=== PATIENT | male | born 1975 | race Caucasian/White ===

== ENCOUNTER 2016-10-27 17:03 | Emergency (ER) | payer OTHER ==
[~2016-10-27] VITALS: Ht 185.4 cm; Wt 92.1 kg
[2016-10-27 17:28] VITALS: TEMP 36.9; Ht 185.4 cm; Wt 92.1 kg
[2016-10-27 18:28] VITALS: O2SAT 99
[2016-10-27 18:51] LABS: POINT OF CARE TROPONIN I < 0.030 ng/ml (0-0.045)
[2016-10-27 18:55] LABS: BASO % 0.6 %; BASO ABS # 0.05 K/uL (0-0.2); COMPLETE YES; EOS % 1.8 %; HEMATOCRIT 43.7 % (42-52); IG% 0.2 %; LYMPH % 30.3 %; LYMPH ABS # 2.71 K/uL (1.2-3.4); MEAN CORPUSCULAR HEMOGLOBIN 31.7 pg (25-34); MEAN CORPUSCULAR HGB CONC 34.8 g/dl (32-36); MEAN PLATELET VOLUME 10.7 fL (7.4-10.4); MONO % 7.5 %; NEUT % 59.6 %; PLATELET COUNT 201 K/uL (130-400); WHITE BLOOD COUNT 8.94 K/uL (4.8-10.8)
[2016-10-27 19:02] LABS: PARTIAL THROMBOPLASTIN RATIO 1.1; PROTHROMBIN TIME (PATIENT) 10.8 SECONDS (9.0-12.0)
[2016-10-27 19:17] LABS: ALT/SGPT 68 U/L (12-78); AST/SGOT 37 U/L (15-37); BLOOD UREA NITROGEN 8 mg/dl (7-18); BUN/CREATININE RATIO 10.4 (10-20); CALCIUM 8.9 mg/dl (8.5-10.1); CARBON DIOXIDE 29 mmol/L (21-32); CHLORIDE 105 mmol/L (98-107); CREATININE 0.79 mg/dl (0.60-1.40); GLUCOSE 79 mg/dl (70-99); POTASSIUM 3.7 mmol/L (3.5-5.1); SODIUM 138 mmol/L (136-145)
[2016-10-27 19:22] LABS: ALKALINE PHOSPHATASE 75 U/L (45-117)
--- NOTE | 2016-10-27 19:23 | DIAGNOSTIC IMAGING REPORT ---
CHEST 2 VIEWS ROUTINE HISTORY: 41 years-old Male pleuritic chest pain COMPARISON: Acute abdominal series radiographs 08/13/2015 TECHNIQUE: Frontal and lateral views of the chest FINDINGS: Cardiomediastinal and hilar silhouettes are within normal limits. There is no pneumothorax, pleural effusion or focal airspace consolidation. No overt pulmonary edema. The bones of the chest are grossly intact. Minimal multilevel endplate spurring is seen. IMPRESSION: No acute cardiopulmonary process. The above report was generated using voice recognition software. It may contain grammatical, syntax or spelling errors. Electronically signed by: Charlie Boyce M.D. 10/27/2016 7:22 PM Dictated Date/Time: 10/27/2016 7:21 PM
--- NOTE | 2016-10-27 19:25 | DIAGNOSTIC IMAGING REPORT ---
L-SPINE MIN 4 VIEWS ROUTINE HISTORY: 41 years-old Male low back pain, left leg pain, no trauma COMPARISON: Sacrum and coccyx radiographs 02/15/2016 TECHNIQUE: 5 views of the lumbar spine FINDINGS: There are 5 lumbar type vertebral segments present. Mild intervertebral disc space narrowing is noted at L5-S1. No significant degenerative changes are otherwise seen. No compression deformity or malalignment. No pars defects identified. Soft tissues are unremarkable. IMPRESSION: 1. No acute bony abnormality. 2. Mild intervertebral disc space narrowing at L5-S1. The above report was generated using voice recognition software. It may contain grammatical, syntax or spelling errors. Electronically signed by: Charlie Boyce M.D. 10/27/2016 7:24 PM Dictated Date/Time: 10/27/2016 7:22 PM
[2016-10-27] MEDS ORDERED: IBUPROFEN 600 MG TAB PO STA (19:33)
[2016-10-27] MEDS ORDERED: ALBUTEROL HFA 8 GM INHALER INH ONE (19:45)
[2016-10-27 20:12] VITALS: BP 129/85; PULSE 85; O2SAT 98
--- NOTE | 2016-10-27 20:21 | EMERGENCY ROOM VISIT NOTE ---
History Report prepared by Chad: Wood Clark Under the Supervision of: Dr. Rafy Wilkerson M.D. First contact with patient: 18:21 Chief Complaint: CARDIAC ASSESSMENT Stated Complaint: CHEST PAIN,SENT BY DR Charles Triage Summary: Patient ambulatory to triage with a steady and upright gait, states "I woke up this morning with a lot of pain in my chest when I cough or take a deep breath. I have a lot of lower back pain with left leg numbness which has been going on for about 4 days. I saw my PCP today around 1545. They just told me to come here for some testing." Patient denies any recent illnesses. History of Present Illness The patient is a 41 year old male who presents to the Emergency Room with complaints of constant substernal chest pain that started around 0330. He rates his pain as an 8/10 in severity. The patient states that he woke up this morning around 0330 coughing when he noticed he was experiencing chest pains. He states that it feels as if "someone is punching me in my chest whenever I cough or take a deep breath". He states that he is also experiencing shortness of breath whenever he is walking. The patient reports that he went to his PCP at [facility] today where he had an EKG done, but he denies having an MRI done because they could not run an MRI after 1800. HE states that his PCP advised him to come to the ED due to a concern for a PE. The patient also reports that he went to his PCP for his chronic lower back pain. He states that he has had lower back pain and a numbness in his left leg intermittently for the last three years. The patient states that these chronic symptoms come and go sporadically. He denies a history of blood clots, heart problems, lung problems, aneurysms, a cold within the last couple of months, recent travel, and a family history of heart problems. The patient denies a headache, fevers, chills, diaphoresis, visual changes, neck pain, nausea, vomiting, abdominal pain , back pain, melena, hematochezia, urinary symptoms, numbness, weakness, lymphadenopathy, rash, incontinence, being around someone ill, or other complaints. Source of History: patient Onset: 0330 this morning Position: chest Symptom Intensity: 8/10 Quality: other ("punching feeling") Timing: constant Modifying Factors (Worsening): other (cough, deep breath) Associated Symptoms: + SOB Review of Systems See HPI for pertinent positives and negatives. A total of ten systems were reviewed and were otherwise negative. Past Medical & Surgical Medical Problems: (1) Osteomyelitis Family History FH: cancer Hypertension Social History Smoking Status: Current Every Day Smoker Alcohol Use: occasionally Drug Use: none Marital Status: Housing Status: lives with significant other Occupation Status: unemployed Current/Historical Medications No Active Prescriptions or Reported Meds Allergies Coded Allergies: Tramadol (Unverified Allergy, Unknown, ., 10/27/16) Physical Exam Vital Signs Date Time Temp Pulse Resp B/P (MAP) Pulse Ox O2 Delivery O2 Flow Rate FiO2 10/27/16 20:12 85 16 129/85 98 10/27/16 18:28 88 20 135/86 99 Room Air 10/27/16 18:28 99 Room Air 10/27/16 18:28 91 10/27/16 17:28 100 Room Air 10/27/16 17:28 36.9 100 18 136/87 99 Room Air Physical Exam GENERAL: Awake, alert, well-appearing, in no distress HENT: Normocephalic, atraumatic. Oropharynx unremarkable. EYES: Normal conjunctiva. Sclera non-icteric. NECK: Supple. No nuchal rigidity. FROM. No JVD. RESPIRATORY: Clear to auscultation. CARDIAC: Regular rate, normal rhythm. Extremities warm and well perfused. Pulses equal. ABDOMEN: Soft, non-distended. No tenderness to palpation. No rebound or guarding. No masses. RECTAL: Deferred. MUSCULOSKELETAL: Chest examination reveals no tenderness. The back is symmetrical on inspection without obvious abnormality. There is no CVA tenderness to palpation. No joint edema. LOWER EXTREMITIES: Calves are equal size bilaterally and non-tender. No edema. No discoloration. NEURO: Normal sensorium. No sensory or motor deficits noted. SKIN: No rash or jaundice noted. Medical Decision & Procedures ER Provider Diagnostic Interpretation: X-ray: Per my interpretation, radiologist review. L-SPINE MIN 4 VIEWS ROUTINE HISTORY: 41 years-old Male low back pain, left leg pain, no trauma COMPARISON: Sacrum and coccyx radiographs 02/15/2016 TECHNIQUE: 5 views of the lumbar spine FINDINGS: There are 5 lumbar type vertebral segments present. Mild intervertebral disc space narrowing is noted at L5-S1. No significant degenerative changes are otherwise seen. No compression deformity or malalignment. No pars defects identified. Soft tissues are unremarkable. IMPRESSION: 1. No acute bony abnormality. 2. Mild intervertebral disc space narrowing at L5-S1. The above report was generated using voice recognition software. It may contain grammatical, syntax or spelling errors. Electronically signed by: Charlie Boyce M.D. 10/27/2016 7:24 PM Dictated Date/Time: 10/27/2016 7:22 PM CHEST 2 VIEWS ROUTINE HISTORY: 41 years-old Male pleuritic chest pain COMPARISON: Acute abdominal series radiographs 08/13/2015 TECHNIQUE: Frontal and lateral views of the chest FINDINGS: Cardiomediastinal and hilar silhouettes are within normal limits. There is no pneumothorax, pleural effusion or focal airspace consolidation. No overt pulmonary edema. The bones of the chest are grossly intact. Minimal multilevel endplate spurring is seen. IMPRESSION: No acute cardiopulmonary process. The above report was generated using voice recognition software. It may contain grammatical, syntax or spelling errors. Electronically signed by: Charlie Boyce M.D. 10/27/2016 7:22 PM Dictated Date/Time: 10/27/2016 7:21 PM Laboratory Results 10/27/16 18:28 Red Blood Count 4.80, Mean Corpuscular Volume 91.0, Mean Corpuscular Hemoglobin 31.7, Mean Corpuscular Hemoglobin Concent 34.8, Mean Platelet Volume 10.7, Neutrophils (%) (Auto) 59.6, Lymphocytes (%) (Auto) 30.3, Monocytes (%) (Auto) 7.5, Eosinophils (%) (Auto) 1.8, Basophils (%) (Auto) 0.6, Neutrophils # (Auto) 5.33, Lymphocytes # (Auto) 2.71, Monocytes # (Auto) 0.67, Eosinophils # (Auto) 0.16, Basophils # (Auto) 0.05 10/27/16 18:28 Test 10/27/16 18:28 10/27/16 18:32 White Blood Count 8.94 K/uL (4.8-10.8) Red Blood Count 4.80 M/uL (4.7-6.1) Hemoglobin 15.2 g/dL (14.0-18.0) Hematocrit 43.7 % (42-52) Mean Corpuscular Volume 91.0 fL (80-100) Mean Corpuscular Hemoglobin 31.7 pg (25-34) Mean Corpuscular Hemoglobin Concent 34.8 g/dl (32-36) Platelet Count 201 K/uL (130-400) Mean Platelet Volume 10.7 fL (7.4-10.4) Neutrophils (%) (Auto) 59.6 % Lymphocytes (%) (Auto) 30.3 % Monocytes (%) (Auto) 7.5 % Eosinophils (%) (Auto) 1.8 % Basophils (%) (Auto) 0.6 % Neutrophils # (Auto) 5.33 K/uL (1.4-6.5) Lymphocytes # (Auto) 2.71 K/uL (1.2-3.4) Monocytes # (Auto) 0.67 K/uL (0.11-0.59) Eosinophils # (Auto) 0.16 K/uL (0-0.5) Basophils # (Auto) 0.05 K/uL (0-0.2) RDW Standard Deviation 43.8 fL (36.4-46.3) RDW Coefficient of Variation 13.2 % (11.5-14.5) Immature Granulocyte % (Auto) 0.2 % Immature Granulocyte # (Auto) 0.02 K/uL (0.00-0.02) Prothrombin Time 10.8 SECONDS (9.0-12.0) Prothromb Time International Ratio 1.0 (0.9-1.1) Activated Partial Thromboplast Time 27.4 SECONDS (21.0-31.0) Partial Thromboplastin Ratio 1.1 Anion Gap 4.0 mmol/L (3-11) Est Creatinine Clear Calc Drug Dose 141.8 ml/min Estimated GFR () 131.1 Estimated GFR (Non- 113.1 BUN/Creatinine Ratio 10.4 (10-20) Calcium Level 8.9 mg/dl (8.5-10.1) Total Bilirubin 0.4 mg/dl (0.2-1) Direct Bilirubin < 0.1 mg/dl (0-0.2) Aspartate Amino Transf (AST/SGOT) 37 U/L (15-37) Alanine Aminotransferase (ALT/SGPT) 68 U/L (12-78) Alkaline Phosphatase 75 U/L (45-117) Total Creatine Kinase 73 U/L (39-308) Creatine Kinase MB < 0.5 ng/ml (0.5-3.6) Creatine Kinase MB Ratio (0-3.0) Total Protein 8.1 gm/dl (6.4-8.2) Albumin 3.9 gm/dl (3.4-5.0) Lipase 479 U/L (73-393) Bedside D-Dimer 412 ng/mlFEU (0-450) Bedside Troponin I < 0.030 ng/ml (0-0.045) Laboratory results reviewed by me Medications Administered Medications (Trade) Dose Ordered Sig/Mirela Route Start Time Stop Time Status Last Admin Dose Admin Ibuprofen (Motrin Tab) 600 mg NOW STAT PO 10/27/16 19:33 10/27/16 19:34 DC 10/27/16 19:50 600 MG Albuterol (Ventolin Hfa Inhaler) 2 puffs NOW ONCE INH 10/27/16 19:45 10/27/16 19:46 DC 10/27/16 19:49 2 PUFFS ECG Indication: chest pain Rate (beats per minute): 97 Rhythm: normal sinus Findings: no acute ischemic change, no ectopy, other (no pericarditis) ED Course 1822: The patient was evaluated in room C11B. A complete history and physical exam was performed. 1932: Ordered Ibuprofen 600 mg PO. 1934: I reevaluated the patient. Discussed results and discharge instructions: He verbalized understanding and agreement. The patient is ready for discharge. 1944: Ordered Albuterol 2 puffs INH. Medical Decision Triage Nursing notes reviewed. The patient's presentation and history were concerning for chest pain. The patient also notes having low back pain that radiates to his left leg. Etiologies such as cardiac ischemia, aortic dissection, pulmonary embolism, pneumonia, pneumothorax, musculoskeletal, infections, gastrointestinal, degenerative disc disease, lumbago, sciatica, cauda equina, epidural abscess, osteomyelitis, fracture, aortic disease, metastatic disease, as well as others were entertained. Patient was evaluated. Physical examination did not reveal any significant issues in the lower extremities. He has had low back pain for over 3 years. He has never had imaging done before. He notes pleuritic type chest pain. He has had this all day today. He has constant pain. Blood work was obtained. He had an unremarkable CBC and chemistry panel. Cardiac markers are negative. D-dimer was negative. As he has had pain for over 16 hours only a single set of cardiac markers were performed. ECG was nonischemic. No pericarditis. The patient is low risk by Wells criteria(No signs/symptoms of DVT, other diagnosis are more likely than PE, Pulse < 100, no recent immobilization or surgery, previous PE/DVT, no hemoptysis, and no history of malignancy) and P.E.R.C. rule negative(Age < 50, Pulse <100, POx > 94%, no unilateral leg swelling/signs of DVT, no hemoptysis, no recent trauma/surgery, no hormone use, and no prior DVT/PE). The patient is a smoker. He has a mild cough. Chest x-ray does not reveal any abnormal findings. I discussed conservative management with anti- inflammatories and an albuterol inhaler. The patient was counseled to stop smoking. He had a slight elevation of his lipase but normal LFTs. The patient has no postprandial pain. He has no problems eating. This is not elevated high enough to be consistent with pancreatitis and he does not have pain to be consistent with pancreatitis either. He had a benign abdominal examination. No prior lipase measurements were available for review. If the patient to have follow up with his primary physician for this. He worsens in any way he is going to come back. He will also follow-up regarding his back pain.I gave my usual and customary discussion regarding this issue. By the evaluation outlined above other emergent etiologies such as those listed in the differential, as well as others, were deemed relatively unlikely. The patient was educated about the findings as listed above. All questions were answered and the patient was pleased with the treatment. Return instructions were outlined and the patient was discharged in stable condition. The patient was referred to his PCP in one to 2 days for follow-up for a recheck of the current condition. [place] Drug Monitoring Program Search Results: patient reviewed within database, no issues identified Medication Reconcilliation Current Medication List: was personally reviewed by me Blood Pressure Screening Patient's blood pressure: Elevated blood pressure Blood pressure disposition: Referred to PCP Impression Primary Impression: Substernal chest pain Additional Impression: Lower back pain Scribe Attestation The scribe's documentation has been prepared under my direction and personally reviewed by me in its entirety. I confirm that the note above accurately reflects all work, treatment, procedures, and medical decision making performed by me. Departure Information Dispostion Home / Self-Care Prescriptions No Active Prescriptions or Reported Meds Referrals No Doctor, Assigned (PCP) Forms IMPORTANT VISIT INFORMATION Patient Instructions My [facility] Additional Instructions INSTRUCTIONS: Ibuprofen(Motrin, Advil) may be used for fever or pain. Use 600mg every six hours as needed. Take with food. Avoid using more than 2400mg in a 24 hour period. Do not use 2400mg per day for more than three consecutive days without physician direction. Prolonged inappropriate use can lead to stomach upset or ulcers. (AND/OR) Acetaminophen(Tylenol) may be used for fever or pain. Use 1000mg every six hours as needed. Avoid using more than 4000mg in a 24 hour period. Albuterol inhaler: Two puffs 4 times daily for seven days to improve breathing , then 2 puffs every 4-6 hours as needed. Rest and drink plenty of fluids as tolerated. Start out with a clear liquid diet and slowly advance back to normal. Continue current medications. Avoid strenuous activities and anything that worsens your pain. Resume normal activities once your symptoms resolve. Return to the ER immediately for worsening or persistent chest pain, abdominal pain, vomiting, fevers, chest pains, difficulty breathing, increasing back pain , loss of bowel or bladder control, severe numbness or pain in the legs, inability to walk, worsening of your condition, or as needed. Follow up with your primary physician in one to 2 days for a recheck of your current condition regarding the chest, back, and the minimally elevated lipase ( pancreas enzyme). Problem Qualifiers
== END 2016-10-27 20:10 | disposition home or self-care (01) ==
LOC: C.EDB 17:04 → C.EDC 20:10
DX: R07.2 Precordial pain (principal); M54.5 Low back pain; M86.9 Osteomyelitis, unspecified; Z82.49 Family history of ischemic heart disease and other diseases of the circulatory system; F17.200 Nicotine dependence, unspecified, uncomplicated

== ENCOUNTER 2017-06-04 08:57 | Emergency (ER) | payer OTHER ==
[~2017-06-04] VITALS: Ht 185.4 cm; Wt 94.9 kg
[2017-06-04 09:03] VITALS: TEMP 36.8; Ht 185.4 cm; Wt 94.9 kg
[2017-06-04 09:31] LABS: BASO % 0.7 %; BASO ABS # 0.06 K/uL (0-0.2); EOS % 2.8 %; EOS ABS # 0.23 K/uL (0-0.5); HEMATOCRIT 45.5 % (42-52); HEMOGLOBIN 15.6 g/dL (14.0-18.0); IG# 0.01 K/uL (0.00-0.02); LYMPH ABS # 2.58 K/uL (1.2-3.4); MEAN CORPUSCULAR HEMOGLOBIN 31.9 pg (25-34); MEAN CORPUSCULAR HGB CONC 34.3 g/dl (32-36); MEAN PLATELET VOLUME 10.7 fL (7.4-10.4); MONO % 7.3 %; MONO ABS # 0.61 K/uL (0.11-0.59); NEUT % 58.1 %; NEUT ABS # 4.83 K/uL (1.4-6.5); PLATELET COUNT 200 K/uL (130-400); RED CELL DISTRIBUTION WIDTH CV 13.2 % (11.5-14.5); RED CELL DISTRIBUTION WIDTH SD 45.2 fL (36.4-46.3); WHITE BLOOD COUNT 8.32 K/uL (4.8-10.8)
[2017-06-04 09:49] LABS: ALBUMIN 3.8 gm/dl (3.4-5.0); ALT/SGPT 31 U/L (12-78); AST/SGOT 18 U/L (15-37); BLOOD UREA NITROGEN 9 mg/dl (7-18); CALCIUM 8.8 mg/dl (8.5-10.1); CARBON DIOXIDE 27 mmol/L (21-32); CREATININE 0.93 mg/dl (0.60-1.40); GLUCOSE 114 mg/dl (70-99); LIPASE 212 U/L (73-393); POTASSIUM 3.7 mmol/L (3.5-5.1); SODIUM 138 mmol/L (136-145)
[2017-06-04 09:51] LABS: ALKALINE PHOSPHATASE 66 U/L (45-117)
--- NOTE | 2017-06-04 09:58 | DIAGNOSTIC IMAGING REPORT ---
KUB CLINICAL HISTORY: Rectal bleeding DIARRHEA, ABDOMINAL PAIN COMPARISON STUDY: 08/13/2015 FINDINGS: There is no pathologic bowel dilatation. There are no calcifications suspicious for renal calculi. There is a stable left pelvic basin calcification likely representing a phlebolith. IMPRESSION: 1. No evidence of pathologic bowel dilatation 2. No urinary tract calculi identified. Electronically signed by: Bill Martinez M.D. 06/04/2017 9:56 AM Dictated Date/Time: 06/04/2017 9:56 AM
[2017-06-04] MEDS ORDERED: CYCLOBENZAPRINE HCL 5 MG TAB PO STA (10:26)
[2017-06-04] MEDS ORDERED: IBUPROFEN 600 MG TAB PO STA (10:26)
[2017-06-04] MEDS ORDERED: LIDODERM (LIDOCAINE) PATCH 5% TD STA (10:26)
--- NOTE | 2017-06-04 11:04 | DIAGNOSTIC IMAGING REPORT ---
L-SPINE MIN 4 VIEWS ROUTINE CLINICAL HISTORY: Low back pain COMPARISON STUDY: 10/19/2016 FINDINGS: No fractures or subluxations are visualized. No destructive lesions are delineated. There are several small bowel loops the upper limits of normal in size. IMPRESSION: No fractures or subluxations identified. No destructive lesions are visualized on conventional graphic imaging Electronically signed by: Bill Martinez M.D. 06/04/2017 11:03 AM Dictated Date/Time: 06/04/2017 11:02 AM
[2017-06-04] MEDS ORDERED: CYCL10TA6 PO (11:39)
[2017-06-04] MEDS ORDERED: SENN-61 PO (11:39)
[2017-06-04] MEDS ORDERED: DOCU-94 PO (11:39)
--- NOTE | 2017-06-04 11:44 | EMERGENCY ROOM VISIT NOTE ---
History Report prepared by Chad: Jarred Prince Under the Supervision of: Dr. Nick Rabago M.D. First contact with patient: 09:06 Chief Complaint: RECTAL BLEEDING Stated Complaint: RECTAL BLEEDING Nursing Triage Summary: triage note: Pt reports "two days ago i started pooping brigh red blood and it is getting worse." pt reports "this has happend before and they gave me suppositories to use and they think maybe i have internal hemmorrhoids." pt also reports lower back pain. History of Present Illness The patient is a 41 year old male who presents to the Emergency Room with complaints of intermittent rectal bleeding beginning 1.5 years ago. He notices the bleeding with defecation. He states that the bleeding has been much more consistent over the past few days. The patient states that he passed a large amount of blood yesterday. He currently has no bleeding. He has never had a colonoscopy before in the past. The patient has no history of chronic constipation and defecates about once a day on average. He currently complains of abdominal pain. Source of History: patient Onset: 1.5 years ago Position: other (rectum) Quality: other (bleeding) Timing: intermittent Modifying Factors (Worsening): defecation Associated Symptoms: + abdominal pain Review of Systems See HPI for pertinent positives & negatives. A total of 10 systems reviewed and were otherwise negative. Past Medical & Surgical Medical Problems: (1) Osteomyelitis Family History FH: cancer Hypertension Social History Smoking Status: Current Every Day Smoker Alcohol Use: occasionally Drug Use: none Marital Status: Housing Status: lives with significant other Occupation Status: unemployed Current/Historical Medications Scheduled Cyclobenzaprine Hcl (Flexeril), 10 MG PO TID Docusate Sodium (Colace), 1 CAP PO BID Senna (Senokot), 1 TAB PO HS Allergies Coded Allergies: Tramadol (Unverified Allergy, Unknown, ., 06/04/17) Physical Exam Vital Signs Date Time Temp Pulse Resp B/P (MAP) Pulse Ox O2 Delivery O2 Flow Rate FiO2 06/04/17 11:54 87 20 127/90 97 06/04/17 11:08 81 06/04/17 10:56 76 18 150/90 99 Room Air 06/04/17 09:03 36.8 98 18 142/82 98 Room Air Physical Exam GENERAL: Awake, alert, well-appearing, in no acute distress HENT: Normocephalic, atraumatic. Oropharynx unremarkable. EYES: Normal conjunctiva. Sclera non-icteric. NECK: Supple. No nuchal rigidity. FROM. No JVD. RESPIRATORY: Clear to auscultation. CARDIAC: Regular rate, normal rhythm. Extremities warm and well perfused. Pulses equal. ABDOMEN: Soft, non-distended. Diffuse tenderness to palpation. No rebound or guarding. No masses. RECTAL: Gross blood on exam. External hemorrhoids present. MUSCULOSKELETAL: Chest examination reveals no tenderness. The back is symmetrical on inspection without obvious abnormality. There is no CVA tenderness to palpation. No joint edema. LOWER EXTREMITIES: Calves are equal size bilaterally and non-tender. No edema. No discoloration. NEURO: Normal sensorium. No sensory or motor deficits noted. Can walk on tip toes and heels without difficulty. No saddle anesthesia. No loss of bowel or bladder control. SKIN: No rash or jaundice noted. Medical Decision & Procedures ER Provider Diagnostic Interpretation: Radiology results as stated below per my review and radiologist interpretation: KUB FINDINGS: There is no pathologic bowel dilatation. There are no calcifications suspicious for renal calculi. There is a stable left pelvic basin calcification likely representing a phlebolith. IMPRESSION: 1. No evidence of pathologic bowel dilatation 2. No urinary tract calculi identified. Electronically signed by: Bill Martinez M.D. 06/04/2017 9:56 AM L-SPINE MIN 4 VIEWS ROUTINE FINDINGS: No fractures or subluxations are visualized. No destructive lesions are delineated. There are several small bowel loops the upper limits of normal in size. IMPRESSION: No fractures or subluxations identified. No destructive lesions are visualized on conventional graphic imaging Electronically signed by: Bill Martinez M.D. 06/04/2017 11:03 AM Laboratory Results 06/04/17 09:18 Red Blood Count 4.89, Mean Corpuscular Volume 93.0, Mean Corpuscular Hemoglobin 31.9, Mean Corpuscular Hemoglobin Concent 34.3, Mean Platelet Volume 10.7, Neutrophils (%) (Auto) 58.1, Lymphocytes (%) (Auto) 31.0, Monocytes (%) (Auto) 7.3, Eosinophils (%) (Auto) 2.8, Basophils (%) (Auto) 0.7, Neutrophils # (Auto) 4.83, Lymphocytes # (Auto) 2.58, Monocytes # (Auto) 0.61, Eosinophils # (Auto) 0.23, Basophils # (Auto) 0.06 06/04/17 09:18 Test 06/04/17 09:18 06/04/17 10:10 White Blood Count 8.32 K/uL (4.8-10.8) Red Blood Count 4.89 M/uL (4.7-6.1) Hemoglobin 15.6 g/dL (14.0-18.0) Hematocrit 45.5 % (42-52) Mean Corpuscular Volume 93.0 fL (80-100) Mean Corpuscular Hemoglobin 31.9 pg (25-34) Mean Corpuscular Hemoglobin Concent 34.3 g/dl (32-36) Platelet Count 200 K/uL (130-400) Mean Platelet Volume 10.7 fL (7.4-10.4) Neutrophils (%) (Auto) 58.1 % Lymphocytes (%) (Auto) 31.0 % Monocytes (%) (Auto) 7.3 % Eosinophils (%) (Auto) 2.8 % Basophils (%) (Auto) 0.7 % Neutrophils # (Auto) 4.83 K/uL (1.4-6.5) Lymphocytes # (Auto) 2.58 K/uL (1.2-3.4) Monocytes # (Auto) 0.61 K/uL (0.11-0.59) Eosinophils # (Auto) 0.23 K/uL (0-0.5) Basophils # (Auto) 0.06 K/uL (0-0.2) RDW Standard Deviation 45.2 fL (36.4-46.3) RDW Coefficient of Variation 13.2 % (11.5-14.5) Immature Granulocyte % (Auto) 0.1 % Immature Granulocyte # (Auto) 0.01 K/uL (0.00-0.02) Anion Gap 4.0 mmol/L (3-11) Est Creatinine Clear Calc Drug Dose 120.5 ml/min Estimated GFR () 119.4 Estimated GFR (Non- 103.0 BUN/Creatinine Ratio 10.1 (10-20) Calcium Level 8.8 mg/dl (8.5-10.1) Total Bilirubin 0.3 mg/dl (0.2-1) Direct Bilirubin < 0.1 mg/dl (0-0.2) Aspartate Amino Transf (AST/SGOT) 18 U/L (15-37) Alanine Aminotransferase (ALT/SGPT) 31 U/L (12-78) Alkaline Phosphatase 66 U/L (45-117) Total Protein 8.0 gm/dl (6.4-8.2) Albumin 3.8 gm/dl (3.4-5.0) Lipase 212 U/L (73-393) Urine Color YELLOW Urine Appearance CLOUDY (CLEAR) Urine pH 6.0 (4.5-7.5) Urine Specific [place] 1.016 (1.000-1.030) Urine Protein NEG (NEG) Urine Glucose (UA) NEG (NEG) Urine Ketones NEG (NEG) Urine Occult Blood NEG (NEG) Urine Nitrite NEG (NEG) Urine Bilirubin NEG (NEG) Urine Urobilinogen NEG (NEG) Urine Leukocyte Esterase NEG (NEG) Urine WBC (Auto) 1-5 /hpf (0-5) Urine RBC (Auto) 0-4 /hpf (0-4) Urine Hyaline Casts (Auto) 1-5 /lpf (0-5) Urine Epithelial Cells (Auto) 0-5 /lpf (0-5) Urine Bacteria (Auto) NEG (NEG) Labs reviewed by ED physician. Medications Administered Medications (Trade) Dose Ordered Sig/Mirela Route Start Time Stop Time Status Last Admin Dose Admin Cyclobenzaprine HCl (Flexeril Tab) 10 mg NOW STAT PO 06/04/17 10:26 06/04/17 10:28 DC 06/04/17 10:53 10 MG Ibuprofen (Motrin Tab) 600 mg NOW STAT PO 06/04/17 10:26 06/04/17 10:28 DC 06/04/17 10:54 600 MG Lidocaine (Lidoderm Patch 5%) 1 patch NOW STAT TD 06/04/17 10:26 06/04/17 10:28 DC 06/04/17 10:54 1 PATCH ED Course 0910: Past medical records reviewed. The patient was evaluated in room A4B. A complete history and physical examination was performed. 1024: I checked in on the patient. He is now complaining of low back pain as well. 1026: Ordered Lidoderm Patch 5% TD, Motrin Tab 600 mg PO, Flexeril Tab 10 mg PO. 1135: Upon reexamination the patient is resting comfortably. I discussed results and treatment plan with the patient. He verbalizes agreement and understanding. The patient is ready for discharge. Medical Decision Differential diagnosis: Etiologies such as diverticulosis, AVM, coagulopathy, colitis, inflammatory bowel disease, malignancy, Sri-Wilson tear, esophagitis, peptic ulcer disease , variceal bleed, gastritis, epistaxis, fissure, hemorrhoids, as well as others were entertained. This is a 41-year-old male who presents emergency department of rectal bleeding complaints. The patient reports she has never had a colonoscopy performed before however he knows he does have internal hemorrhoids. On rectal exam the patient is heme positive however there is not a gross amount of blood. In addition his hemoglobin level is normal at 15. I did discuss this with the patient. At the time of discharge the patient then came up with another complaint saying he is complaining of low back pain. I will note that the patient may no such complaint originally to the physician. As well as ibuprofen here. I stressed the need for follow-up with both gastroenterology for the rectal bleed as well as the at this point the patient was then ambulated out of his bed and he was able to walk on his tiptoes and his heels. He has no loss of bowel or bladder control and has no evidence of saddle anesthesia. Based on these findings I feel that the patient can be conservatively treated. The patient is on the no narcotic treatment plan here in the emergency department. He was therefore given Flexeril orthopedic economic specialist. The patient was given a prescription for Flexeril. The patient asked for a narcotic prescription however he is on the no narcotic treatment plan. Medication Reconcilliation Current Medication List: was personally reviewed by me Blood Pressure Screening Patient's blood pressure: Elevated blood pressure Blood pressure disposition: Elevated BP felt to be situational Impression Primary Impression: Rectal bleeding Additional Impression: Lumbar back pain Scribe Attestation The scribe's documentation has been prepared under my direction and personally reviewed by me in its entirety. I confirm that the note above accurately reflects all work, treatment, procedures, and medical decision making performed by me. Departure Information Dispostion Home / Self-Care Prescriptions Cyclobenzaprine Hcl (FLEXERIL) 10 Mg Tab 10 MG PO TID, #21 TAB Prov: Nick Rabago MD 06/04/17 Docusate Sodium (COLACE) 100 Mg Cap 1 CAP PO BID for 30 Days, #60 CAP Prov: Nick Rabago MD 06/04/17 Senna (Senokot) 8.6 Mg Tab 1 TAB PO HS for 30 Days, #30 TAB Prov: Nick Rabago MD 06/04/17 Referrals No Doctor, Assigned (PCP) Forms HOME CARE DOCUMENTATION FORM, IMPORTANT VISIT INFORMATION, WORK / SCHOOL INSTRUCTIONS Patient Instructions Back Pain - [facility], ED Exercises Lumbar Muscles, ED Hematochezia Stable, ED Low Back Pain Injury, ED Neck Back Pain General, Low Back Pain Self Care, [facility] SeeControl Additional Instructions Follow up with Dr Mcdonald's office for rectal bleed Follow up with Dr Garcia's office for back pain Take 1000 mg Tylenol every 6 hours Take Flexeril for breakthrough pain You have been examined and treated today on an emergency basis only. This is not a substitute for, or an effort to provide, complete comprehensive medical care. It is impossible to recognize and treat all injuries or illnesses in a single emergency department visit. It is therefore important that you follow up closely with your PCP. Call as soon as possible for an appointment. Thank you for your time and consideration. I look forward to speaking with you again soon. Please don't hesitate to call us if you have any questions. Problem Qualifiers
[2017-06-04 11:54] VITALS: BP 127/90; PULSE 87; O2SAT 97
== END 2017-06-04 11:56 | disposition home or self-care (01) ==
LOC: C.EDB 08:59 → C.EDA 11:56
DX: K62.5 Hemorrhage of anus and rectum (principal); M54.5 Low back pain; F17.200 Nicotine dependence, unspecified, uncomplicated; Z82.49 Family history of ischemic heart disease and other diseases of the circulatory system; Z88.6 Allergy status to analgesic agent